=== PATIENT | male | born 1990 | race Caucasian/White ===

== ENCOUNTER 2016-03-06 19:31 | Emergency (ER) | payer BC ==
[~2016-03-06] VITALS: Ht 182.9 cm; Wt 104.5 kg
[~2016-03-06 19:31] MED LIST: ADDERALL XR20 MG PO; AMBIEN 10MG10 MG PO; AMBIEN 5MG TABLE5 MG PO; INDOCIN 25MG CA25 MG PO; LOPRESSOR 225 MG/TAB PO; MOTRIN 800800 MG/TAB PO; NO HOME MEDICATIONS; NORCO 325 MG-51 TAB PO
[2016-03-06 19:34] VITALS: TEMP 98.7
[2016-03-06] MEDS ORDERED: DESYREL 50MG50 MG PO (19:49)
[2016-03-06] MEDS ORDERED: OMNICEF 300MG300 MG PO (20:05)
[2016-03-06 20:21] LABS: BASO % 0.4 % (0.0-2.0); EOS # 0.1 (0.0-0.7); EOS % 0.6 % (0-4.0); GRAN # 7.8 (1.4-6.5); GRAN % 78.4 % (42.2-75.2); HEMATOCRIT 46.1 % (42.0-52.0); HEMOGLOBIN 16.5 g/dl (13.5-18.0); LYMPH # 0.8 (1.2-3.4); LYMPH % 8.4 % (20.0-51.0); MEAN CELL VOLUME 84 fl (80.0-100.0); MEAN CORPUSCULAR HEMOGLOBIN 30 pg (27.0-31.0); MEAN CORPUSCULAR HGB CONC 36 g/dl (33.0-37.0); MEAN PLATELET VOLUME 9.4 fl (7.4-10.4); MONO # 1.2 (0.1-0.6); MONO % 11.9 % (1.7-9.3); PLATELET COUNT 243 K/mm3 (130-400); RED BLOOD COUNT 5.48 M/mm3 (4.20-5.60); REDCELL DISTRIBUTION WIDTH-CV 11.7 % (11.5-14.5)
[2016-03-06 20:22] LABS: ADJUSTED CALCIUM 9.2 mg/dL (8.4-10.2); ALANINE AMINOTRANSFERASE 124 U/L (21-72); ALBUMIN 4.1 gm/dL (3.5-5.0); ALKALINE PHOSPHATASE 103 U/L (50-136); ANION GAP 12 mmol/L (7-16); BILIRUBIN,TOTAL 1.8 mg/dL (0.0-1.0); BLOOD UREA NITROGEN 12 mg/dL (9-20); CALCIUM 9.3 mg/dL (8.4-10.2); CARBON DIOXIDE 25 mmol/L (22-30); CHLORIDE 97 mmol/L (98-107); CREATININE, serum 0.74 mg/dL (0.66-1.25); GLUCOSE 114 mg/dL (74-106); POTASSIUM 3.9 mmol/L (3.4-5.0); SODIUM 135 mmol/L (137-145); TOTAL PROTEIN 8.3 gm/dL (6.4-8.2)
[2016-03-06 20:48] LABS: C-REACTIVE PROTEIN 22.3 mg/dL (0.0-0.9); TROPONIN-I < 0.012 ng/mL (0.000-0.034)
[2016-03-06] MEDS ORDERED: ROXICODONE 55 MG/TAB PO (21:28)
[2016-03-06] MEDS ORDERED: ZITHROMAX 250M250 MG PO (21:28)
[2016-03-06 21:30] VITALS: BP 142/86; PULSE 86
== END 2016-03-06 21:41 | disposition home or self-care (01) ==
LOC: COL.ER 19:31
PROVIDERS: Emergency Medicine
DX: J18.8 Other pneumonia, unspecified organism (principal); F17.290 Nicotine dependence, other tobacco product, uncomplicated
CPT/HCPCS: J2270; J2405; J7030

== ENCOUNTER → 2017-06-23 | Outpatient (CLI) | payer BC ==
[~2017-06-23] MED LIST changes: +ADDERALL15 MG PO; +DESYREL 50MG50 MG PO; +OMNICEF 300MG300 MG PO; +OXYCODONE H5 MG/5 ML PO; +ROXICODONE 55 MG/TAB PO; +TOPROL XL 50MG50 MG PO; +ZITHROMAX 250M250 MG PO
[2017-06-23 21:04] VITALS: BP 130/73; PULSE 71; TEMP 97.6
== END ==
LOC: EDSTATUS 19:07 → COL.ER 19:07
DX: R52 Pain, unspecified (principal); R11.0 Nausea
CPT/HCPCS: J1100; J2270; J2405; J7121

== ENCOUNTER 2021-06-09 20:56 | Emergency (ER) | payer OTHER ==
[~2021-06-09] VITALS: Ht 180.3 cm; Wt 122.7 kg
[2021-06-09 21:31] VITALS: TEMP 99.4
[2021-06-09 21:49] LABS: HEMATOCRIT 51.1 % (42.0-52.0); HEMOGLOBIN 17.7 g/dl (13.5-18.0); MEAN CELL VOLUME 84 fl (80.0-100.0); MEAN CORPUSCULAR HEMOGLOBIN 29 pg (27-31); MEAN CORPUSCULAR HGB CONC 35 g/dl (33.0-37.0); MEAN PLATELET VOLUME 9.9 fl (7.4-10.4); PLATELET COUNT 252 K/mm3 (130-400); RED BLOOD COUNT 6.06 M/mm3 (4.20-5.60); REDCELL DISTRIBUTION WIDTH-CV 12.3 % (11.5-14.5)
[2021-06-09 22:04] LABS: ALANINE AMINOTRANSFERASE 54 U/L (0-55); ALBUMIN 4.1 gm/dL (3.5-5.0); ALKALINE PHOSPHATASE 94 U/L (40-150); ANION GAP 12 mmol/L (7-16); AST,SGOT 25 U/L (5-34); BLOOD UREA NITROGEN 12 mg/dL (9-21); CARBON DIOXIDE 21 mmol/L (22-29); CHLORIDE 103 mmol/L (98-107); GLUCOSE 112 mg/dL (70-99); POTASSIUM 4.2 mmol/L (3.5-4.5); SODIUM 136 mmol/L (136-145); TOTAL PROTEIN 7.6 gm/dL (6.2-8.1)
[2021-06-09 22:10] LABS: TROPONIN-I < 0.010 ng/mL (0.00-0.033)
[2021-06-09] MEDS ORDERED: ZOFRAN 4MG T4 MG/TAB PO (23:11)
[2021-06-09 23:14] LABS: BAND 3 % (0-10); LYMPHOCYTE 9 % (20.0-51.0); NEUTROPHILS 83 % (42.0-75.2)
[2021-06-09 23:15] LABS: PLATELET ESTIMATE NORMAL (NORMAL)
[2021-06-09 23:25] VITALS: BP 137/61; PULSE 85
== END 2021-06-09 23:25 | disposition home or self-care (01) ==
LOC: COL.ER 20:56
PROVIDERS: Emergency Medicine
DX: R11.2 Nausea with vomiting, unspecified (principal); R07.89 Other chest pain; R19.7 Diarrhea, unspecified; D72.829 Elevated white blood cell count, unspecified
CPT/HCPCS: J1885; J2765; J7120